=== PATIENT | female | born 1995 | race Caucasian/White ===

== ENCOUNTER 2022-01-20 05:44 | Inpatient (IN) ==
[2022-01-20] MEDS ORDERED: TRANEXAMIC ACID 1,000 MG in SODIUM CHLORIDE 0.9% 100 ML IV PRN (06:02)
[2022-01-20] MEDS ORDERED: miSOPROStoL 200 MCG TABLET RECTAL PRN (06:02)
[2022-01-20] MEDS ORDERED: FAMOTIDINE 20 MG/2 ML VIAL IV PRN (06:02)
[2022-01-20] MEDS ORDERED: CITRIC ACID/SODIUM CITRATE 30 ML UDCUP PO PRN (06:02)
[2022-01-20] MEDS ORDERED: OXYTOCIN/LR 20 UNIT/1,000 ML BAG IV PRN (06:02)
[2022-01-20] MEDS ORDERED: CARBOPROST TROMETHAMINE 250 MCG/ML AMP IM PRN (06:02)
[2022-01-20] MEDS ORDERED: ceFAZolin 2,000 MG/50 ML DUPLEX IV PRN (06:02)
[2022-01-20] MEDS ORDERED: METHYLERGONOVINE 0.2 MG/1 ML AMP IM PRN (06:02)
[2022-01-20] MEDS ORDERED: LACTATED RINGERS 1,000 ML IV SCH ×2 (06:30→08:30)
[2022-01-20 06:47] LABS: Basophils % 0.3 % (0.0-0.8); Eosinophils # 0.1 10*3/uL (0.0-0.87); Eosinophils % 1.4 % (0.00-10.9); Hematocrit 33.8 VOL% (35.7-47.0); Hemoglobin 11.7 GM/DL (12.0-16.0); Immature Granulocytes % 0.8 %; Immature Granulocytes Absolute 0.07 #; Lymphocytes % 32.7 % (21.3-54.2); Mean Corpuscular HGB Conc 34.6 GM/DL (32-36); Mean Corpuscular Volume 85.1 FL (87-102); Mean Platelet Volume 13.5 FL (9.6-12.0); Monocytes # 0.7 10*3/uL (0.11-0.8); Monocytes % 7.3 % (1.7-12.7); Neutrophils % 57.5 % (38.7-73.9); Platelet Count 202 T/CUMM (130-400); Red Blood Count 3.97 MC/CUMM (3.8-5.5); Red Cell Distribution Width 13.1 % (9.3-17.3); White Blood Count 9.1 T/CUMM (4-12)
[2022-01-20 07:03] LABS: Alanine Aminotransferase 16 U/L (13-56); Albumin 2.5 G/DL (3.4-5.0); Alkaline Phosphatase 229 U/L (45-117); Aspartate Amino Transferase 16 U/L (0-37); Bilirubin,Total < 0.39 MG/DL (0.20-1.00); Blood Urea Nitrogen 5 MG/DL (7-18); Calcium 8.9 MG/DL (8.5-10.1); Carbon Dioxide 23 MMOL/L (21-32); Chloride 111 MMOL/L (98-107); Glucose 76 MG/DL (74-106); Osmolality,Calculated 276.3 MOS/KG (273-304); Potassium 3.4 MMOL/L (3.5-5.1); Sodium 141 MMOL/L (136-145); Total Protein 6.5 G/DL (6.4-8.2)
[2022-01-20] MEDS ORDERED: buprenorphine HCL 0.3 MG/ML VIAL ONE ×2 (07:15→08:13)
[2022-01-20] MEDS ORDERED: BUPIVACAINE SPINAL 0.75% 2 ML AMP SPINAL ONE (07:15)
[2022-01-20] MEDS ORDERED: ONDANSETRON 4 MG/2 ML VIAL ONE (07:31)
[2022-01-20] MEDS ORDERED: LACTATED RINGERS 1,000 ML IV ONE (07:34)
[2022-01-20] MEDS ORDERED: ePHEDrine 50 MG/ML VIAL ONE (07:35)
[2022-01-20] MEDS ORDERED: ACETAMINOPHEN INJ 1,000 MG/100 ML VIAL IV ONE (07:50)
[2022-01-20] MEDS ORDERED: KETOROLAC 30 MG/1 ML VIAL ONE (07:53)
[2022-01-20] MEDS ORDERED: DEXAMETHASONE 4 MG/1 ML VIAL ONE (07:54)
[2022-01-20] MEDS ORDERED: MIDAZOLAM 2 MG/2 ML VIAL ONE (07:57)
[2022-01-20 08:00] LABS: Cord Arterial Blood HCO3 17.6 MMOL/L
[2022-01-20 08:03] LABS: Cord Venous Blood HCO3 17.9 MMOL/L; Cord Venous Blood PO2 32.4
[2022-01-20 08:07] LABS: Bacteria,Urine Occasional /HPF (Few); RBC,Urine 1 /HPF (0-4); Squamous Epithelial Cell,Urine Occasional /HPF (0-10)
[2022-01-20 08:08] LABS: Bilirubin,Urine Negative (Negative); Blood, Urine Negative (Negative); Glucose,Urine (UA) Negative (Negative); Ketones,Urine Negative (Negative); Nitrite,Urine Negative (Negative); Protein,Urine Negative (Negative); Urine Appearance Clear (Clear); Urine Color Yellow (Yellow); Urine Urobilinogen 0.2 eU/dL (<2.0)
[2022-01-20] MEDS ORDERED: OXYTOCIN/LR 20 UNIT/1,000 ML BAG IV ONE (08:23)
[2022-01-20] MEDS ORDERED: ACETAMINOPHEN 325 MG TABLET PO PRN (08:23)
[2022-01-20] MEDS ORDERED: SIMETHICONE CHEW 80 MG TABLET PO PRN (08:23)
[2022-01-20] MEDS ORDERED: ONDANSETRON 4 MG/2 ML VIAL IV PRN (08:23)
[2022-01-20] MEDS ORDERED: RHO(D) IMMUNE GLOBULIN 300 MCG SYRINGE IM ONE (08:23)
[2022-01-20] MEDS ORDERED: MAGNESIUM HYDROXIDE SUSP 30 ML UDCUP PO PRN (08:23)
[2022-01-20] MEDS: MULTIVITAMIN (PRENATAL) TABLET PO SCH (13:09)
[2022-01-20] MEDS: DOCUSATE SODIUM 100 MG CAPSULE PO SCH ×3 (13:09→21:12)
[2022-01-20] MEDS: KETOROLAC 30 MG/1 ML VIAL IV SCH ×2 (13:23→20:45)
[2022-01-20] MEDS: ACETAMINOPHEN 500 MG TABLET PO SCH ×2 (13:25→20:47)
[2022-01-21] MEDS: KETOROLAC 30 MG/1 ML VIAL IV SCH (02:31)
[2022-01-21] MEDS: ACETAMINOPHEN 500 MG TABLET PO SCH (02:32)
[2022-01-21 04:58] LABS: Basophils % 0.4 % (0.0-0.8); Eosinophils # 0.1 10*3/uL (0.0-0.87); Eosinophils % 1.3 % (0.00-10.9); Hematocrit 19.7 VOL% (35.7-47.0); Immature Granulocytes % 0.6 %; Immature Granulocytes Absolute 0.06 #; Lymphocytes # 2.6 10*3/uL (1.4-4.0); Mean Corpuscular HGB Conc 33.5 GM/DL (32-36); Mean Corpuscular Volume 89.1 FL (87-102); Monocytes # 0.6 10*3/uL (0.11-0.8); Monocytes % 6.6 % (1.7-12.7); Neutrophils % 63.1 % (38.7-73.9); Platelet Count 150 T/CUMM (130-400); Red Blood Count 2.21 MC/CUMM (3.8-5.5); Red Cell Distribution Width 13.2 % (9.3-17.3); White Blood Count 9.3 T/CUMM (4-12)
[2022-01-21 05:03] LABS: Hemoglobin 6.6 GM/DL (12.0-16.0)
[2022-01-21 05:19] LABS: Hypochromia 2+; Microcytosis Slight; Platelet Estimate Normal
[2022-01-21] MEDS: POTASSIUM CHLORIDE 20 MEQ TABLET PO PRN ×3 (07:55→12:24)
[2022-01-21] MEDS: IBUPROFEN 800 MG TABLET PO PRN ×2 (07:55→17:50)
[2022-01-21] MEDS: oxyCODONE/ACETAMINOPHEN 5-325 MG TABLET PO PRN ×4 (07:56→21:16)
[2022-01-21] MEDS: MULTIVITAMIN (PRENATAL) TABLET PO SCH ×2 (07:57→08:04)
[2022-01-21] MEDS: DOCUSATE SODIUM 100 MG CAPSULE PO SCH ×3 (07:57→21:20)
[2022-01-21 10:02] LABS: Basophils % 0.5 % (0.0-0.8); Eosinophils # 0.2 10*3/uL (0.0-0.87); Eosinophils % 1.9 % (0.00-10.9); Hematocrit 19.7 VOL% (35.7-47.0); Hemoglobin 6.6 GM/DL (12.0-16.0); Immature Granulocytes % 0.8 %; Immature Granulocytes Absolute 0.07 #; Lymphocytes # 2.3 10*3/uL (1.4-4.0); Lymphocytes % 26.9 % (21.3-54.2); Mean Corpuscular HGB Conc 33.5 GM/DL (32-36); Mean Corpuscular Volume 89.5 FL (87-102); Mean Platelet Volume 11.9 FL (9.6-12.0); Monocytes # 0.5 10*3/uL (0.11-0.8); Monocytes % 6.5 % (1.7-12.7); Neutrophils % 63.4 % (38.7-73.9); Platelet Count 159 T/CUMM (130-400); Red Cell Distribution Width 13.4 % (9.3-17.3); White Blood Count 8.4 T/CUMM (4-12)
[2022-01-21] MEDS: FERROUS SULFATE 325 MG TABLET PO SCH ×2 (10:14→21:21)
[2022-01-21] MEDS ORDERED: SODIUM CHLORIDE 0.9% 1,000 ML IV PRN ×2 (10:30→10:33)
[2022-01-21 18:56] LABS: Basophils % 0.2 % (0.0-0.8); Eosinophils # 0.1 10*3/uL (0.0-0.87); Eosinophils % 1.3 % (0.00-10.9); Hematocrit 25.6 VOL% (35.7-47.0); Immature Granulocytes % 0.8 %; Immature Granulocytes Absolute 0.08 #; Lymphocytes # 2.2 10*3/uL (1.4-4.0); Lymphocytes % 21.4 % (21.3-54.2); Mean Corpuscular HGB Conc 33.2 GM/DL (32-36); Mean Corpuscular Volume 86.5 FL (87-102); Mean Platelet Volume 12.4 FL (9.6-12.0); Monocytes # 0.5 10*3/uL (0.11-0.8); Neutrophils % 71.3 % (38.7-73.9); Platelet Count 161 T/CUMM (130-400); Red Blood Count 2.96 MC/CUMM (3.8-5.5); Red Cell Distribution Width 14.6 % (9.3-17.3); White Blood Count 10.1 T/CUMM (4-12)
[2022-01-21 18:57] LABS: Hemoglobin 8.5 GM/DL (12.0-16.0)
[2022-01-22 06:11] LABS: Basophils % 0.2 % (0.0-0.8); Eosinophils # 0.2 10*3/uL (0.0-0.87); Eosinophils % 1.7 % (0.00-10.9); Hematocrit 25.7 VOL% (35.7-47.0); Hemoglobin 8.7 GM/DL (12.0-16.0); Immature Granulocytes % 0.6 %; Immature Granulocytes Absolute 0.05 #; Lymphocytes # 2.1 10*3/uL (1.4-4.0); Lymphocytes % 23.3 % (21.3-54.2); Mean Corpuscular HGB Conc 33.9 GM/DL (32-36); Mean Corpuscular Volume 86.2 FL (87-102); Monocytes # 0.6 10*3/uL (0.11-0.8); Monocytes % 6.7 % (1.7-12.7); Neutrophils % 67.5 % (38.7-73.9); Platelet Count 172 T/CUMM (130-400); Red Blood Count 2.98 MC/CUMM (3.8-5.5); Red Cell Distribution Width 14.9 % (9.3-17.3)
[2022-01-22 06:15] LABS: Hematocrit 25.8 VOL% (35.7-47.0); Hemoglobin 8.7 GM/DL (12.0-16.0)
[2022-01-22] MEDS: FERROUS SULFATE 325 MG TABLET PO SCH (08:40)
[2022-01-22] MEDS: DOCUSATE SODIUM 100 MG CAPSULE PO SCH (08:40)
[2022-01-22] MEDS: MULTIVITAMIN (PRENATAL) TABLET PO SCH (08:41)
[2022-01-22] MEDS: IBUPROFEN 800 MG TABLET PO PRN (08:42)
[2022-01-22] MEDS: oxyCODONE/ACETAMINOPHEN 5-325 MG TABLET PO PRN (08:43)
[2022-01-22 16:26] VITALS: BP 125/83
== END 2022-01-22 15:10 | disposition home or self-care (01) | DRG 787 ==
LOC: N.LD 05:44 → N.OB 14:49
PROVIDERS: ADMIT Obstetrics & Gynecology; ATTEND Obstetrics & Gynecology
PROC: LDCSECT (ICD-10-PCS; 2022-01-20 07:48)